=== PATIENT | female | born 1990 | race Caucasian/White ===

== ENCOUNTER 2016-12-14 18:04 | Emergency (ER) | payer BC ==
[2016-12-14] MEDS ORDERED: Famotidine 20 MG/2 ML SDV IVPUSH ONE (18:17)
[2016-12-14] MEDS ORDERED: methylPREDNISolone Sodium Succinate 125 MG/2 ML SDV IVPUSH ONE (18:17)
[2016-12-14] MEDS ORDERED: diphenhydrAMINE 50 MG/ML SDV IVPUSH ONE (18:17)
--- NOTE | 2016-12-14 18:19 | EDM.PDOC ---
[id number] Complaint: Allergic Reaction Stated Complaint: ALLERGIC REACTION Time Seen by Provider: 12/14/16 18:13 - Related Data Allergies/ADRs: Allergies Allergy/AdvReac Type Severity Reaction Status Date / Time sulfamethoxazole Allergy Other Verified 12/14/16 18:45 [From Bactrim] trimethoprim [From Bactrim] Allergy Other Verified 12/14/16 18:45 peanuts Allergy Other Uncoded 12/14/16 18:45 Home Meds: Home Meds EPINEPHrine [Epipen] 0.3 mg IM ASDIRECTED #2 pen 12/14/16 [Rx] Course - Vital Signs Last Recorded V/S: Last Vital Signs Temp 36.4 C 12/14/16 18:09 Pulse 86 12/14/16 20:58 Resp 16 12/14/16 20:58 BP 134/88 12/14/16 20:58 Pulse Ox 100 12/14/16 20:58 - Orders/Labs/Meds Meds: Medications Discontinued Medications Generic Name Dose Route Start Last Admin Trade Name [employer] PRN Reason Stop Dose Admin Diphenhydramine HCl 50 mg 12/14/16 18:17 12/14/16 18:24 Benadryl IVPUSH 12/14/16 18:18 50 mg ONETIME ONE Administration Famotidine 20 mg 12/14/16 18:17 12/14/16 18:28 Pepcid IVPUSH 12/14/16 18:18 20 mg ONETIME ONE Administration Sodium Chloride 1,000 mls @ 999 mls/hr 12/14/16 18:30 12/14/16 18:24 Normal Saline IV 999 mls/hr ASDIRECTED MIA Administration Methylprednisolone Sodium Succinate 125 mg 12/14/16 18:17 12/14/16 18:32 Solu-Medrol IVPUSH 12/14/16 18:18 125 mg ONETIME ONE Administration Ondansetron HCl 4 mg 12/14/16 18:41 12/14/16 18:44 Zofran IVPUSH 12/14/16 18:42 4 mg ONETIME ONE Administration Ondansetron HCl Confirm 12/14/16 18:43 12/14/16 19:03 Zofran Administered 12/14/16 18:44 Not Given Dose 4 mg .ROUTE .K-MED ONE - Re-Assessments/Exams Free Text/Narrative Re-Assessment/Exam: 12/14/16 19:22 I examined the patient. She is resting comfortably. Slight substernal chest discomfort. Feels tongue swelling has improved. Has approximately 100mls of fluid bolus left. Will continue to monitor in the ER and plan on discharge home. I will write for another prescription for epipens as she has only one at home. 12/14/16 20:15 Patient continues to feel improved. 1 Liter NS bolus in. Patient feels comfortably going home. Will discharge home at this time. Discharge instructions as documented by Maggie Mccauley. Departure - Departure Time of Disposition: 20:20 Disposition: Home, Self-Care 01 Condition: fair Clinical Impression: Allergic reaction to food Qualifiers: Encounter type: initial encounter Qualified Code(s): T78.1XXA - Other adverse food reactions, not elsewhere classified, initial encounter Prescriptions: EPINEPHrine [Epipen] 0.3 mg IM ASDIRECTED #2 pen Instructions: Food Allergy, [id number] Referrals: PCP,None [Primary Care Provider] - Forms: ED Department Discharge Additional Instructions: Evaluation in the emergency room today in regards to acute allergic reaction confined mostly to the oral cavity after biting into a dessert that is strongly suspect that contained peanut butter or peanuts in some form. No one severe allergic reaction to peanut oils in the past. He were treated with intravenous fluids and given Pepcid 20 mg IV with Benadryl 50 mg IV and Solu-Medrol 125 mg IV for acute allergic reaction. Said she spit out the offending substance without ingesting it is unlikely that any further significant allergic reaction will occur tonight. May require Benadryl 50 mg every 6 hours if you still have some feeling of swelling or itching in her throat. Of course return to the ED if you develop any other significant allergic reaction such as hives or trouble breathing. <Luis Enrique Wells - Last Filed: 12/18/16 00:04> ED HPI Allergic Reaction - General Source of Information: Reports: Patient History Limitations: Reports: No limitations ( ) - History of Present Illness INITIAL COMMENTS - FREE TEXT/NARRATIVE: 26-year-old female presents to the ED with suspect allergic reaction. Patient has a known allergy to dependents particularly peanut oil her pain her daughter. She was having a piece of dessert--- take right that appeared to be mostly chocolate. However as soon as she put in her mouth she started to appreciate the typical symptoms of allergic reaction in terms of tongue started to tingle and burn as did the roof of her mouth on the floor of her mouth. She feels a heaviness in her chest without any wheezing. She has not broke out in hives yet she has broke out in hives in the past. She only took one bite of the offending substance. She arrives in the ED 15 minutes after exposure. She took a Claritin 10 mg tablet before coming to the ED. At present she has no erythema. She feels thickening of her tongue and difficulty talking. She feels itching in her mouth and throat area. Symptom Onset Date: 12/14/16 Symptom Onset Time: 17:50 Timing/Duration: Reports: Minutes:, Sudden onset Location, Skin: Reports: face, other (Mouth, tongue ,throat) Characteristics: Reports: other (No rash at.) Associated features: Reports: warmth (Facial rash over her cheeks.) Quality: Reports: Other (Tearing in her throat and roof of her mouth.). Denies : Ache Severity: moderate Known identified source: yes (Suspect it but her in a dessert that she had taken a bite of.) Place of Occurrence: other Sick Contact: no Associated Symptoms: Reports: other (Heaviness in her chest without wheezing.). 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: Musculoskeletal History: Reports: Other (see below) Other Musculoskeletal History: ACL repair - Past Surgical History Head Surgeries/Procedures: Reports: None Respiratory Surgical History: Reports: None GI Surgical History: Reports: Appendectomy Social & Family History - Tobacco Use Smoking Status *Q: Never Smoker Second Hand Smoke Exposure: Yes - Recreational Drug Use Recreational Drug Use: No - Living Situation & Occupation Living situation: Reports: ED ROS ALLERGIC REACTION - Review of Systems Review Of Systems: See Below Constitutional: Reports: no symptoms HEENT: Reports: Throat swelling ( and itching in her roof of her mouth and back of her throat.), Other (Feels her tongue is thickening) Respiratory: Reports: Other Cardiovascular: Reports: No symptoms (Heaviness in her chest without wheezing) Endocrine: Reports: no symptoms GI/Abdominal: Reports: No symptoms : Reports: no symptoms Musculoskeletal: Reports: no symptoms Skin: Reports: no symptoms Neurological: Reports: No Symptoms Psychiatric: Reports: No symptoms Hematologic/Lymphatic: Reports: no symptoms Immunologic: Reports: no symptoms ED EXAM GENERAL NO PERIP PULSE - Physical Exam Exam: See Below Exam Limited By: No limitations General Appearance: alert, mild distress, other (Speaks slightly muffled. As if her tongue is swollen.) Eye Exam: bilateral eye: normal inspection (No periorbital erythema) Throat/Mouth: Other (Floor of the mouth is not boggy or edematous. Uvula is normal. Tongue may be slightly thickened. No swelling of her lips at this time) Head: atraumatic, normocephalic Neck: normal inspection, supple, non-tender, full range of motion. No: lymphadenopathy (L), lymphadenopathy (R) Respiratory/Chest: lungs clear ( Mostly due to anxiety), normal breath sounds, no accessory muscle use, respiratory distress (Mild tachypnea at rest.) Cardiovascular: normal peripheral pulses, regular rate, rhythm, no edema, no murmur GI/Abdominal: normal bowel sounds, soft, non tender, no distention Extremities: normal inspection, normal range of motion, non-tender, no pedal edema, normal capillary refill Neurological: alert, oriented, CN II-XII intact, normal cognition, normal gait Psychiatric: normal affect, normal mood Skin Exam: Warm, Dry, Intact, Normal color, No rash Course - Orders/Labs/Meds Meds: Medications Discontinued Medications Generic Name Dose Route Start Last Admin Trade Name Shaanq PRN Reason Stop Dose Admin Diphenhydramine HCl 50 mg 12/14/16 18:17 12/14/16 18:24 Benadryl IVPUSH 12/14/16 18:18 50 mg ONETIME ONE Administration Famotidine 20 mg 12/14/16 18:17 12/14/16 18:28 Pepcid IVPUSH 12/14/16 18:18 20 mg ONETIME ONE Administration Sodium Chloride 1,000 mls @ 999 mls/hr 12/14/16 18:30 12/14/16 18:24 Normal Saline IV 999 mls/hr ASDIRECTED MIA Administration Methylprednisolone Sodium Succinate 125 mg 12/14/16 18:17 12/14/16 18:32 Solu-Medrol IVPUSH 12/14/16 18:18 125 mg ONETIME ONE Administration Ondansetron HCl 4 mg 12/14/16 18:41 12/14/16 18:44 Zofran IVPUSH 12/14/16 18:42 4 mg ONETIME ONE Administration Ondansetron HCl Confirm 12/14/16 18:43 12/14/16 19:03 Zofran Administered 12/14/16 18:44 Not Given Dose 4 mg .ROUTE .K-MED ONE - Radiology Interpretation Free Text/Narrative:: 26-year-old female presents the ED with suspect acute allergic reaction to suspect any butter that was inside a chocolate type of dessert. She took one Vicodin within a few moments notice that her tongue was starting to tingle and swelled with a feeling of swelling of the back of her throat as well. She is acutely allergic to peanuts and peanut oil. Has had to use epinephrine in the past. She has had hives as well as respiratory embarrassment in the past. At present she came to the ED within 15 minutes of exposure. She has symptoms confined to the oral cavity with no significant swelling appreciated on examination. Plan she'll be given supplemental 0.25 mg IV with Pepcid 20 mg IV and Benadryl 50 mg IV for acute relief I will D. will be normal saline at open. - Re-Assessments/Exams Free Text/Narrative Re-Assessment/Exam: 12/14/16 18:45 patient reports that she's feeling a little a headache and nauseated. Still feels itching in the back of her throat. No further trouble swallowing. Voice remains normal on reexamination the uvula is perhaps a little thick more thickened than it was are swollen oropharynx appears normal no swelling of the floor of the mouth. Tongue is unchanged from the initial exam lungs are clear. Will reevaluate in one half hour. Will give Zofran 4 mg IV for nausea relief. Departure - Departure Condition: fair
[2016-12-14] MEDS ORDERED: Sodium Chloride 0.9% 1,000 ML IV SCH (18:30)
[2016-12-14] MEDS ORDERED: Ondansetron 4 MG/2 ML SDV IVPUSH ONE (18:41)
[2016-12-14] MEDS ORDERED: Ondansetron 4 MG/2 ML SDV ONE (18:43)
[2016-12-14 20:59] VITALS: BP 134/88
== END 2016-12-14 20:10 | disposition home or self-care (01) ==
LOC: JD.ED 18:04
DX: T78.1XXA Other adverse food reactions, not elsewhere classified, initial encounter (principal); L29.9 Pruritus, unspecified; J45.909 Unspecified asthma, uncomplicated; Z88.2 Allergy status to sulfonamides; Z88.8 Allergy status to other drugs, medicaments and biological substances; Z91.010 Allergy to peanuts; Z90.49 Acquired absence of other specified parts of digestive tract
CPT/HCPCS: 96361; 96374; 96375; 99283; J1200; J2405; J2930; J7040; 99284